=== PATIENT | female | born 1990 | race Caucasian/White ===

== ENCOUNTER 2021-04-22 17:40 | Outpatient (CLI) | payer OTHER, SELFPAY ==
[2021-04-22 18:43] VITALS: BMI 31.2
== END 2021-04-22 18:30 | disposition home or self-care (01) ==
PROVIDERS: PCP Family Medicine; Visit Provider Obstetrics & Gynecology
DX: O42.90 Premature rupture of membranes, unspecified as to length of time between rupture and onset of labor, unspecified weeks of gestation (principal); Z3A.00 Weeks of gestation of pregnancy not specified
CPT/HCPCS: 84112

== ENCOUNTER 2021-04-29 04:49 | Inpatient (IN) | payer OTHER, SELFPAY ==
[2021-04-29] VITALS (210 sets, daily range): BP systolic 63–153; BP diastolic 43–105; PULSE 57–157; RESP 16–18; TEMP 36.1–38.3; O2SAT 98–100; BMI 31.2
[2021-04-29] MEDS: LACTATED RINGERS 1,000 ML 125 ML IV CONT ×3 (05:38→20:55)
--- NOTE | 2021-04-29 05:41 | LDADM ---
This patient, Ryann Coleman, was admitted to Labor/Delivery/Recovery 108 on 04/29/21 at 04:49. Plans for labor, pain management and were discussed with patient. Patient/family oriented to hospital policies and general routines including ID bracelet, bed and alarms, visiting hours, pain management, procedures, bathroom and other care routines, personal items, smoking policy, room service/diet and guest tray routines, security routines, and visiting hours. Patient/Family are encouraged to report perceived risks to care and to ask questions if they do not understand what they are told or what they should do. See OBIX for further documentation.
[2021-04-29 05:46] LABS: Basophils Percent Auto 0.2 % (0.2-1.2); Eosinophils Absolute Auto 0.1 K/mm3 (0-0.3); Eosinophils Percent Auto 0.4 % (0-4.4); Hematocrit 35.9 % (37.0-47.0); Hemoglobin 12.3 g/dL (12.0-15.0); Immature Granulocyte Absolute 0.06 K/mm3 (0.00-0.031); Immature Granulocyte Percent A 0.5 % (0-0.5); Lymphocytes Absolute Auto 2.19 K/mm3 (0.9-3.2); Lymphocytes Percent Auto 17.3 % (18.3-44.2); Mean Corpuscular HGB Conc 34.3 g/dl (32-36); Mean Corpuscular Hemoglobin 30.8 pg (26-34); Mean Corpuscular Volume 89.8 fl (80-100); Mean Platelet Volume 9.6 fl (7.4-10.4); Monocytes Absolute Auto 0.8 K/mm3 (0.1-0.6); Monocytes Percent Auto 6.1 % (2.6-8.5); Neutrophils Absolute Auto 9.5 K/mm3 (1.3-6.7); Neutrophils Percent Auto 75.5 % (45.5-73.1); Platelet Count Result 238 k/mm3 (150-375); Red Cell Distribution Width 14.4 % (11.5-14.5); White Blood Count 12.6 K/mm3 (4.5-10.0)
[2021-04-29] MEDS: fentaNYL CITRATE INJ (*CRX) 100 MCG/2 ML VIAL 50 MCG IV PUSH ×3 (07:12→10:54)
--- NOTE | 2021-04-29 07:26 | WPDANESEPP ---
Anes - Eval Pre Procedure Procedure: labor epidural Date/Time: 04/29/21 07:26 Preop Diagnosis: labor pain Pre Op Diagnosis: Leaking Patient Data Age: 31 Gender: F Height: 1.55 m Weight: 75 kg Last Vital Signs Temp 36.2 C L 04/29/21 05:41 Pulse 92 04/29/21 07:01 Resp 18 04/29/21 05:41 BP 73/43 L 04/29/21 07:01 Allergies Allergy/AdvReac Type Severity Reaction Status Date / Time No Known Allergies Allergy Verified 04/27/21 11:47 Home Medications Medication Instructions Recorded Confirmed Type prenat.vits,fuad,qys-ybul-vlxrw 1 tablet PO DAILY 09/05/20 04/14/21 History cholecalciferol (vitamin D3) 25 25 mcg PO DAILY 11/02/20 04/14/21 History mcg (1,000 unit) capsule docusate sodium [Colace] 50 mg PO DAILY 03/30/21 04/14/21 History ferrous sulfate [Iron (ferrous 325 mg PO DAILY 03/30/21 04/14/21 History sulfate)] Laboratory Tests 04/29/21 04/29/21 05:32 05:32 WBC 12.6 K/mm3 H K/mm3 (4.5-10.0) RBC 4.00 M/mm3 L M/mm3 (4.2-5.4) Hgb 12.3 g/dL g/dL (12.0-15.0) Hct 35.9 % L % (37.0-47.0) MCV 89.8 fl fl (80-100) MCH 30.8 pg pg (26-34) MCHC 34.3 g/dl g/dl (32-36) RDW 14.4 % % (11.5-14.5) Plt Count 238 k/mm3 k/mm3 (150-375) MPV 9.6 fl fl (7.4-10.4) Immature Gran % (Auto) 0.5 % % (0-0.5) Neut % (Auto) 75.5 % H % (45.5-73.1) Lymph % (Auto) 17.3 % L % (18.3-44.2) [place] % (Auto) 6.1 % % (2.6-8.5) Eos % (Auto) 0.4 % % (0-4.4) Baso % (Auto) 0.2 % % (0.2-1.2) Lymph # (Auto) 2.19 K/mm3 K/mm3 (0.9-3.2) [place] # (Auto) 0.8 K/mm3 H K/mm3 (0.1-0.6) Eos # (Auto) 0.1 K/mm3 K/mm3 (0-0.3) Baso # (Auto) 0.0 K/mm3 K/mm3 (0.0-0.1) Abs Immat Gran (auto) 0.06 K/mm3 H K/mm3 (0.00-0.031) Absolute Neuts (auto) 9.5 K/mm3 H K/mm3 (1.3-6.7) Absolute Nucleated RBC 0.0 K/mm3 K/mm3 (0.0-0.012) Nucleated RBC % 0.0 % % (0.0-0.2) RPR Pending Patient hx anesthesia problems: none Family hx anesthesia problems: none Results Review: All pre-operative results and documents have been reviewed as part of the pre-operative evaluation. [facility] Past Medical History Medical History Anxiety Depression IBS (irritable bowel syndrome) Surgical History Surgical History [place] teeth extracted Family History Family History Other No pertinent family history Social History Social History Smoking status: Never smoker Alcohol intake: unknown Substance use: never Spiritual care concerns: No Exam Day of Procedure 04/29/21 07:26
[2021-04-29] MEDS: ONDANSETRON INJ 4 MG/2 ML VIAL IV PUSH (14:14)
[2021-04-29] MEDS: OXYTOCIN 30 UNITS/NS 500 ML 30 UNITS/500 ML BAG IV CONT (14:50)
--- NOTE | 2021-04-29 15:50 | PM.IMHP ---
H&P: HPI History of Present Illness Date/Time: 04/29/21 15:50 Patient is a 31yo LMP 07/22/20 currently 40w1d gestation with KELSEY 04/28/21. Patient is dated by LMP consistent with US on 09/14/20 at 7w gestation. Patient presented to L&D earlier this morning with complaints of leakage of fluid. Patient reports leakage of fluid at approx. 2:50 a.m. She also reports onset of contractions. Denies any vaginal bleeding and reports good movement. Upon arrival to L&D, patient was noted to be grossly ruptured and mile regularly. Decision made to admit patient in labor with SROM. Chief Complaint: Labor Spontaneous rupture of membranes Review of Systems Review of Systems: All systems reviewed & are unremarkable except as noted in HPI and below Constitutional: Constitutional: Reports as per HPI, Reports no additional constitutional complaints, Denies chills, Denies fever(s), Denies headache(s) and Denies night sweats Eyes: Eyes: Reports as per HPI and Reports no additional eye complaints ENT: Reports system reviewed and no additional complaints, except as documented, Reports as per HPI, Reports Normal hearing present and Denies headache(s) Cardiovascular: Cardiovascular: Reports as per HPI, Reports no additional cardiovascular complaints, Denies chest pain and Denies dyspnea Respiratory: Respiratory: Reports as per HPI, Reports no additional respiratory complaints, Denies cough and Denies dyspnea Gastrointestinal: Gastrointestinal: Reports as per HPI, Reports no additional gastrointestinal complaints, Denies abdominal pain, Denies change in bowel habits, Denies change in stool character, Denies nausea and Denies vomiting Genitourinary: Genitourinary: Reports no additional female genitourinary complaints, Reports as per HPI, Denies abnormal vaginal bleeding, Denies genital lesions, Denies hot flashes, Denies dyspareunia, Denies pelvic pain, Denies sexual dysfunction, Denies urinary incontinence, Denies vaginal discharge, Denies vaginal dryness and Denies vaginal odor Musculoskeletal: Musculoskeletal: Reports no additional musculoskeletal complaints and Reports as per HPI Integumentary/Breasts: Skin/Breast: Reports system reviewed and no additional complaints, except as docu, Reports as per HPI, Denies breast pain and Denies nipple discharge Neurologic: Reports system reviewed and no additional complaints, except as documented, Reports as per HPI, Reports Normal hearing present and Denies headache(s) Psychiatric: Psychiatric: Reports no additional psychiatric complaints, Reports as per HPI, Denies anxiety and Denies depression Endocrine: Endocrine: Reports no additional endocrine complaints and Reports as per HPI Hematologic/Lymphatic: Hematologic/Lymphatic: Reports no additional hematologic/lymphatic complaints and Reports as per HPI Allergic/Immunologic: Allergic/Immunologic: Reports no additional allergic/immunologic complaints and Reports as per HPI PMFSH Past Medical History Medical History Anxiety Depression IBS (irritable bowel syndrome) Surgical History Surgical History [place] teeth extracted Family History Family History Other No pertinent family history Social History Social History Smoking status: Never smoker Alcohol intake: unknown Substance use: never Spiritual care concerns: No Meds Home Medications and Allergies Home Medications Medication Instructions Recorded Confirmed Type prenat.vits,fuad,tjd-vqzb-vssur 1 tablet PO DAILY 09/05/20 04/14/21 History cholecalciferol (vitamin D3) 25 25 mcg PO DAILY 11/02/20 04/14/21 History mcg (1,000 unit) capsule docusate sodium [Colace] 50 mg PO DAILY 03/30/21 04/14/21 History ferrous sulfate [Iron (ferrous 325 mg PO DAILY 03/30/21 04/14/21 Histor
--- NOTE | 2021-04-29 16:07 | WPDHPUPDATE1 ---
History and Physical Update Update Date/Time: 04/29/21 16:07 History and Physical has been reviewed, including an updated exam of the patient. There are NO changes in the patient's condition. Risks, benefits, and alternatives have been discussed and questions answered. Patient agrees to proceed with procedure.
[2021-04-29] MEDS: diphenhydrAMINE HCl INJ 50 MG/ML VIAL 25 MG IV PUSH (19:29)
[2021-04-29] MEDS: AMPICILLIN 2 GM/NS 100 ML 2 GM/100 ML BAG IVPB (20:49)
--- NOTE | 2021-04-29 21:46 | PM.OBPNLAB ---
Pain Control Date/time seen: 04/29/21 21:46 Patient seen at bedside. Currently on pitocin with IUPC in place. SVE unchanged 5-6cm, anterior cervix significantly edematous and posterior approx. 70% effaced, -1 station. tachycardia noted to 160s with periods of minimal variability. Maternal temp WNL, however, subjectively feels warm. Has been started on antibiotics for GBS prophylaxis for prolonged rupture of membranes. Also given 1 dose of IV Benadryl in effort to see if cervix would reduce. Patient mile q 2 mins, however, MVUs just below 200. Plan was initially to continue current management with labor augmentation and attempt to improve Cat 2 tracing, however, occ late decelerations were noted on EFM. Due to Cat 2 tracing remote from delivery with suspicion for chorioamnionitis, recommendation made to proceed with section. Risks, benefits, and alternatives discussed with patient and partner. Patient implied an understanding and agrees with plan. Anesthesia notified.
--- NOTE | 2021-04-29 22:11 | PM.OBPRVD ---
OB - Delivery Note Procedure Delivery date: 04/29/21 Procedure: Procedures Operation Date: 04/29/21 22:15 <No data on this case meets the specified criteria> Intrapartal events: Intolerance Delivery augmentation: pitocin Delivery monitor: external FHT, external uterine and internal uterine Route of delivery: Specimen: Yes (placenta and cord, cord blood, and cord gases) Quantitative Blood Loss (ml): 770 Anesthesia type: Epidural Disposition: PACU Complications: No immediate complications Baby Date of : 04/29/21 Time of : 22:46 Weeks of gestation at delivery: 40 (40.1) gender: Female Weight (pounds): 8 Weight (ounces): 5 presentation: vertex Placenta delivery description: Manual Removal cord vessel description: 3 Vessels, Clamped/Cut and Around Body x1 (around lower extremity) score one minute: 7 score five minutes: 9
--- NOTE | 2021-04-29 22:13 | PM.OBPRVD ---
OB - Delivery Note Procedure Procedure: Procedures Operation Date: 04/29/21 22:15 <No data on this case meets the specified criteria> Intrapartal events: Intolerance Anesthesia type: Epidural Baby Date of : 04/29/21 Weeks of gestation at delivery: 40 (40.1) gender: Female presentation: vertex
--- NOTE | 2021-04-29 22:14 | W.PM.PROC2 ---
Procedure Note - Detailed Date of Procedure 04/29/21 Pre-op Diagnosis Intrauterine at 40w1d Category II tracing remote from delivery Left labial skin tag Post-op Diagnosis same Procedure Performed Primary low transverse section via Pfannenstiel Excision of left labial skin tag Surgeon Krystal iMller MD Skein Inspector Demetrice Rodriguez Anesthesia epidural Indications Same as above Findings Live female infant in cephalic presentation, clear amniotic fluid, apgars 7/9, weighing 8 lbs. 5 oz., normal appearing uterus, ovaries, and fallopian tubes bilaterally Description of Procedure The patient was taken to the operating room, where she self-transferred to the operating room table. Epidural anesthesia was administered and found to be adequate. The patient was placed in dorsal supine position with a leftward tilt. She was prepped and draped in the usual sterile fashion. Epidural anesthesia was tested and found to be adequate. A Pfannenstiel skin incision was made with a scalpel and carried through to underlying layer of fascia with the Bovie. The fascia was incised in the midline and the incision was extended laterally with the use of forceps and Godfrey scissors. The inferior aspect of the fascial incision was grasped with Yoselyn clamps, elevated, and the underlying rectus muscle were dissected off with Godfrey scissors. Attention was then turned to the superior aspect of the fascial incision, which in a similar manner, was grasped with Yoselyn clamps, elevated, and the underlying rectus muscles were also dissected off with Godfrey scissors. The rectus muscles were in the midline and the peritoneal cavity was entered bluntly. A small superficial area of bleeding was noted along the anterior surface of left rectus muscle. This area was made hemostatic with a single figure of eight suture using 0 vicryl. The peritoneal incision was extended superiorly and inferiorly with good visualization of the bladder and care was taken to avoid blood vessels. A bladder blade was inserted. The vesicouterine peritoneum was identified and incised sharply with Metzenbaum scissors. This incision was extended laterally with Metzenbaum scissors and a bladder flap was created digitally. The bladder blade was replaced. A low-transverse uterine incision was made with a scalpel. This incision was extended laterally with bandage scissors. Clear amniotic fluid was noted. The infant's head was grasped and gently guided to the level of the uterine incision. The infant's head was delivered easily and atraumatically without difficulty followed by the neck, shoulders, and rest of body with gentle fundal pressure. The infant's nose and mouth were suctioned with bulb suction. Terminal meconium was noted. A segment of umbilical cord was wrapped around a lower extremity and reduced. The cord was clamped and cut and the was handed off to waiting nursing staff. A segment of cord was collected for cord gases. Cord blood was also collected. The placenta was then delivered manually with gentle uterine massage. Uterus was exteriorized and cleared of all clots and debris. The uterine incision was reapproximated with 0 Vicryl in a running, locked fashion. A second imbricating layer using 0 Monocryl performed. Excellent hemostasis was noted. On inspection, the uterus, ovaries, and fallopian tubes appeared to be normal bilaterally. The uterus was replaced into the abdominal cavity. The gutters were cleared of all clots and debris. The uterine incision was inspected again and noted to be hemostatic. Hemaderm was applied across the uterine incision. Interceed was also applied across the uterine incision and anterior surface of the uterus. A pinpoint area of bleeding was noted along the posterior surface of the bladder. This area was made hemostatic with light touch of bovie. The peritoneum was reapproximated with 2-0 Monocryl. The fascia was then closed with 0 Vicryl in a running fashion. The subcutaneous
[2021-04-29] MEDS: ceFAZolin 2 GM/D5W 50 ML 2 GM/50 ML BAG IVPB (22:36)
[2021-04-30] VITALS (45 sets, daily range): BP systolic 100–134; BP diastolic 45–108; PULSE 73–175; RESP 16–20; TEMP 36.4–37.2; O2SAT 95–98
[2021-04-30] MEDS: OXYTOCIN 30 UNITS/NS 500 ML 30 UNITS/500 ML BAG 125 UNITS IV CONT (00:18)
[2021-04-30] MEDS: CLINDAMYCIN 900 MG/D5W 50 ML 900 MG/50 ML PIGGYBACK 50 MG IVPB ×3 (01:24→17:53)
--- NOTE | 2021-04-30 01:49 | OBPPTRN ---
Patient transferred to post room #288 via stretcher. Support person present. Oriented to unit, room, information board, rooming in, admission packet and security measures. Patient verbalizes understanding.
[2021-04-30] MEDS: AMPICILLIN 2 GM/NS 100 ML 2 GM/100 ML BAG IVPB ×4 (03:09→22:01)
[2021-04-30] MEDS: KETOROLAC 30 MG/ML VIAL (*BKC) IV PUSH (05:37)
[2021-04-30 05:59] LABS: Basophils Absolute Auto 0.1 K/mm3 (0.0-0.1); Basophils Percent Auto 0.3 % (0.2-1.2); Eosinophils Percent Auto 0.1 % (0-4.4); Hematocrit 33.1 % (37.0-47.0); Hemoglobin 11.4 g/dL (12.0-15.0); Immature Granulocyte Absolute 0.08 K/mm3 (0.00-0.031); Immature Granulocyte Percent A 0.5 % (0-0.5); Lymphocytes Absolute Auto 1.72 K/mm3 (0.9-3.2); Lymphocytes Percent Auto 9.8 % (18.3-44.2); Mean Corpuscular HGB Conc 34.4 g/dl (32-36); Mean Corpuscular Hemoglobin 31.1 pg (26-34); Mean Corpuscular Volume 90.4 fl (80-100); Mean Platelet Volume 9.4 fl (7.4-10.4); Monocytes Absolute Auto 1.2 K/mm3 (0.1-0.6); Monocytes Percent Auto 6.8 % (2.6-8.5); Neutrophils Absolute Auto 14.5 K/mm3 (1.3-6.7); Neutrophils Percent Auto 82.5 % (45.5-73.1); Platelet Count Result 201 k/mm3 (150-375); Red Blood Count 3.66 M/mm3 (4.2-5.4); Red Cell Distribution Width 14.3 % (11.5-14.5); White Blood Count 17.6 K/mm3 (4.5-10.0)
[2021-04-30] MEDS: NEOMYCIN/POLYMYXIN/BACITRACIN OINTMENT 15 GM TUBE 1 APPLIC TOPICAL (07:05)
[2021-04-30] MEDS: SIMETHICONE 80 MG TAB.CHEW PO ×3 (07:05→22:04)
[2021-04-30] MEDS: DOCUSATE SODIUM 100 MG CAPSULE PO ×2 (07:06→16:09)
[2021-04-30] MEDS: MULTIVIT/MIN/PREN/FOL AC/IRON TABLET 1 TAB PO (07:06)
[2021-04-30] MEDS: LANOLIN (LANSINOH) 7.5 GM CREAM 1 APPLIC TOPICAL (07:06)
--- NOTE | 2021-04-30 08:00 | PC.NURSE ---
Nipple shield provided to mother due to ineffective feeding. Instructions given on application and cleaning of shield. Discussed nipple shield precautions and possible complications. Patient able to return demonstration on proper application of shield. Discussed the need to initiate pumping if infant continues to nurse with the shield. Patient verbalizes understanding.
[2021-04-30] MEDS: DEXTROSE 5%/0.45% SOD CHL 1,000 ML 125 ML IV CONT (08:30)
--- NOTE | 2021-04-30 10:27 | P.PNOB_ITS ---
OB - PN: Subj Subjective Date/time seen: 04/30/21 10:27 Patient doing well this AM. Pain well controlled with medication. Reported mild headache earlier, resolved. Denies any chest pain, SOB, N/V. Tolerating PO diet. Catheter still in place. Minimal flatus. No ambulation yet. OB - PN: Obj Data Labs CBC & Chem 7: 04/30/21 05:31 Labs: Laboratory Results - last 24 hr 04/30/21 05:31 WBC 17.6 H RBC 3.66 L Hgb 11.4 L Hct 33.1 L MCV 90.4 MCH 31.1 MCHC 34.4 RDW 14.3 Plt Count 201 MPV 9.4 Immature Gran % (Auto) 0.5 Neut % (Auto) 82.5 H Lymph % (Auto) 9.8 L [place] % (Auto) 6.8 Eos % (Auto) 0.1 Baso % (Auto) 0.3 Lymph # (Auto) 1.72 [place] # (Auto) 1.2 H Eos # (Auto) 0.0 Baso # (Auto) 0.1 Abs Immat Gran (auto) 0.08 H Absolute Neuts (auto) 14.5 H Absolute Nucleated RBC 0.0 Nucleated RBC % 0.0 OB - PN A/P Assessment and Plan (1) Delivery by section using transverse incision of lower segment of uterus: Code(s): O82 - Encounter for delivery without indication Status: Acute Assessment and Plan: POD#1 doing well continue routine postoperative care encourage ambulation or use of IS dc ni this AM/afternoon (2) Chorioamnionitis: Code(s): O41.1290 - Chorioamnionitis, unspecified trimester, not applicable or unspecified Status: Acute Assessment and Plan: currently afebrile continue antibiotics Time Spent With Patient Time: Total time spent is greater than 50% in coordination of care (as documented) at patient's floor/unit and/or counseling patient: Exam Const: General: cooperative, healthy appearing, comfortable and no acute distress GI: Inspection: non-distended GI Palp: Yes Soft to palpation and No Tenderness to palpation present (GI) Other: inc covered with bandage that is c/d/i Extrem: Right lower extremity: edema Details: 1+ Left lower extremity: edema Details: 1+
[2021-04-30] MEDS: HYDROcodone/acetaminophen (*CRX) 5-325 MG TABLET 1 TAB PO ×3 (13:07→22:03)
[2021-04-30] MEDS: IBUPROFEN 600 MG TABLET PO ×2 (13:08→22:02)
[2021-05-01] MEDS: SIMETHICONE 80 MG TAB.CHEW PO (04:36)
[2021-05-01] MEDS: IBUPROFEN 600 MG TABLET PO ×3 (04:36→21:54)
[2021-05-01] MEDS: HYDROcodone/acetaminophen (*CRX) 10-325 MG TABLET 1 TAB PO (04:37)
[2021-05-01 07:45] VITALS: BP 109/64; PULSE 78; RESP 16; TEMP 36.3; O2SAT 97
[2021-05-01] MEDS: MULTIVIT/MIN/PREN/FOL AC/IRON TABLET 1 TAB PO (07:52)
[2021-05-01] MEDS: HYDROcodone/acetaminophen (*CRX) 5-325 MG TABLET 1 TAB PO ×3 (07:52→21:55)
[2021-05-01] MEDS: DOCUSATE SODIUM 100 MG CAPSULE PO (07:52)
[2021-05-01] MEDS: NEOMYCIN/POLYMYXIN/BACITRACIN OINTMENT 15 GM TUBE 1 APPLIC TOPICAL (09:00)
[2021-05-01] MEDS: ONDANSETRON INJ 4 MG/2 ML VIAL IV PUSH (09:55)
[2021-05-01 10:40] LABS: Rapid Plasma Reagin Non-Reactive (NonReactive)
--- NOTE | 2021-05-01 11:54 | PC.NURSE ---
Consulted with patient, reviewed feeding cues, frequencies, duration of feedings, feeding elimination flow sheet, and signs of adequate intake. Demonstrated stimulation techniques to wake for feeding. Encouraged parents to stimulate to stay awake at breast through out feeding. Showed mom hand expression before feeding and breast compression while infant was feeding. Assisted with to breast. Reviewed positioning/alignment, holding breast and asymmetrical latch on. Infant was able to latch correctly after a few attempts. tongue sucks and has to work to get tongue down for feeding. Infant nursed eagerly once on breast, with steady draws and occasional swallowing noted. Reviewed signs of a correct latch, effective nursing and suck swallow ratio. was able to maintain latch with minimal discomfort to mother. Mom has an abrasion noted on right breast across nipple surface and one on the areola. Mom states areola one is from pumping prior to delivery to induce labor and the other from previous feeding. Discussed flange sizes and the spectra pump. Mom does not have pump with her but states she now feels able to assess flange size after she gets home. educated on obtaining a deep latch for every feeding. Nipple care reviewed. Instructed mother to call out for assistance with next feeding. Instructed feeding should be initiated three hours from start of last feeding or if feeding cues are noted before. Mother voiced understanding of information shared.
--- NOTE | 2021-05-01 12:58 | P.PNOB_ITS ---
OB - PN: Subj Subjective Date/time seen: 05/01/21 12:58 She states she is . Has ambulated without problems. Lochia decreasing. Positive flatus. Tolerating regular food. No leg pain. OB - PN: Obj Data Labs CBC & Chem 7: 04/30/21 05:31 Labs: Laboratory Results - last 24 hr 04/29/21 05:32 RPR Non-reactive OB - PN A/P Assessment and Plan (1) Delivery by section using transverse incision of lower segment of uterus: Code(s): O82 - Encounter for delivery without indication Status: Acute Assessment and Plan: Doing well. Routine post op care. (2) Chorioamnionitis: Code(s): O41.1290 - Chorioamnionitis, unspecified trimester, not applicable or unspeci fied Status: Acute Assessment and Plan: Remained afebrile after antibiotics discontinued. Time Spent With Patient Time: Total time spent is greater than 50% in coordination of care (as documented) at patient's floor/unit and/or counseling patient: Exam Const: General: comfortable and no acute distress Resp: Effort & Inspection: normal respiratory effort GI: Other: fundus -2umb firm appropriate tenderness, incision intact, no drainage. Extrem: Other: 1-2+ edema bilat nontender bilat Psych: Mental Status: mental status grossly normal Affect: normal affect
--- NOTE | 2021-05-01 14:55 | WPDANLDPN2 ---
Anes-Prog Note L&D Date/Time: 05/01/21 14:55 Comfortable throughout: section Neuraxial method: epidural Epidural/Spinal procedure site: clean & non-tender Neuro status: Neuro function grossly intact. Cardiovascular status: normal Respiratory status: normal Airway patency: baseline Mental status: baseline Post-Op hydration status: normal Vital Signs: Last Vital Signs Temp 36.3 C L 05/01/21 07:45 Pulse 78 05/01/21 07:45 Resp 16 05/01/21 07:45 BP 109/64 05/01/21 07:45 Pulse Ox 97 05/01/21 07:45 Pain score (VAS): 08/07 I/O: Intake & Output 04/30/21 05/01/21 05/01/21 23:59 07:59 15:59 Intake Total 100 Balance 100 Post-procedural complaints: none Patient feedback: Patient satisfied with anesthetic care.
--- NOTE | 2021-05-01 14:56 | WPDANLDNPN2 ---
Anes-Prog Note L&D-Neuraxial Date/Time: 05/01/21 14:56 Neuraxial medications: epidural PF morphine Opiod-related complaints: none Patient feedback: Patient satisfied with post-operative pain management.
[2021-05-01 19:18] VITALS: BP 116/83; PULSE 71; RESP 16; TEMP 37.2; O2SAT 99
[2021-05-02] MEDS: IBUPROFEN 600 MG TABLET PO ×4 (04:09→22:10)
[2021-05-02 07:00] VITALS: BP 117/67; PULSE 63; RESP 18; TEMP 36.4; O2SAT 98
[2021-05-02] MEDS: NEOMYCIN/POLYMYXIN/BACITRACIN OINTMENT 15 GM TUBE 1 APPLIC TOPICAL (09:00)
[2021-05-02] MEDS: MULTIVIT/MIN/PREN/FOL AC/IRON TABLET 1 TAB PO (09:36)
[2021-05-02] MEDS: HYDROcodone/acetaminophen (*CRX) 5-325 MG TABLET 1 TAB PO ×3 (09:37→22:10)
[2021-05-02] MEDS: DOCUSATE SODIUM 100 MG CAPSULE PO ×2 (09:39→15:57)
[2021-05-02 20:00] VITALS: BP 142/81; PULSE 64; RESP 16; TEMP 36.8; O2SAT 98
--- NOTE | 2021-05-02 21:42 | PM.OBPNVD ---
OB - PN: Subj Subjective Date/time seen: 05/02/21 0815 She has been ambulating. Pain is controlled when she takes the pain medication on schedule. Positive flatus. Tolerated reg diet. No leg pain. Lochia decreasing. . Baby started on antibiotics. She has bilat leg swelling. No calf tenderness. OB - PN: Obj Data Labs CBC & Chem 7: 04/30/21 05:31 OB - PN A/P Assessment and Plan (1) Delivery by section using transverse incision of lower segment of uterus: Code(s): O82 - Encounter for delivery without indication Status: Acute Assessment and Plan: POD 3. She is doing ok. Continue oral pain medication. Anticipate discharge tomorrow. Will order compression knee high may help with swelling. Time Spent With Patient Time: Total time spent is greater than 50% in coordination of care (as documented) at patient's floor/unit and/or counseling patient: Exam Const: General: comfortable and no acute distress Resp: Effort & Inspection: normal respiratory effort : Other: incision intact clean dry no drainage Extrem: Other: nontender bilaterally 2+ edema bilat, no redness Psych: Mental Status: mental status grossly normal Affect: normal affect
[2021-05-03] MEDS: IBUPROFEN 600 MG TABLET PO ×2 (04:49→11:05)
[2021-05-03] MEDS: HYDROcodone/acetaminophen (*CRX) 5-325 MG TABLET 1 TAB PO ×2 (04:50→11:05)
[2021-05-03 08:00] VITALS: BP 126/86; PULSE 91; TEMP 36.8; O2SAT 98
--- NOTE | 2021-05-03 08:43 | PM.OBDSVD ---
DS: Admitting Diagnosis Discharge Date May 03, 2021. Admitting Diagnosis Spontaneous rupture of membranes. DS: Discharge Diagnosis Discharge Diagnosis (1) Delivery by section using transverse incision of lower segment of uterus: Code(s): O82 - Encounter for delivery without indication Status: Acute (2) Chorioamnionitis: Code(s): O41.1290 - Chorioamnionitis, unspecified trimester, not applicable or unspecified Status: Acute OB - DS: Summary Hospital Course Hospital Course: Patient was admitted for SROM and labor. She had protracted labor and had pitocin augmentation. During labor she did get antibiotics for GBS prophylaxis for membraines ruptured more than 18 hours. She also developed a fever and tachycardia and was diagnosed with chorioamnionitis. The tracing was Cat 2 remote from delivery and she was recommended for primary ceserean section. She underwent an uncomplicated ceserean section. She also had a labial skin growth that she wished to be removed at time of delivery whichwas excised. Post operatively she was continued on IV antibiotics until afebrile for 24 hours. She did well. On post op day two she was ambulating and had better analgesia. On post op day 3 she was improved. Remained afebrile off of antibiotics. She was discharge to home on POD4 when baby was ready for discharge. Discharge precautions discussed. Her incision was healing well. OB Procedures : Ultrasound OB Procedures Intrapartum: and Other (Antibiotics for GBS prophylaxis ruptured more than eighteen hours) OB Procedures: : Antibiotics Peripartum Data Delivery Method: Section (Excision of labial tag) Procedures: Procedures Operation Date: 04/29/21 22:15 Actual Procedure Side Surgeon p Section Krystal Miller MD complications: none Status at Discharge Functional status at discharge: independent ambulation Time Spent with Patient Time attestation: Total time spent providing and/or coordinating discharge services: Exam Const: General: cooperative Orientation/consciousness: oriented to person, oriented to place and oriented to time HENMT: General nose exam: Normal external nose present Eyes: General: appearance normal, both eyes and all related structures Resp: Effort & Inspection: normal respiratory effort GI: Inspection: normal to inspection Skin: General skin exam: normal color Neuro: General: oriented to person, oriented to place and oriented to time Extrem: General: normal to inspection and no calf tenderness Psych: Appearance: grossly normal Mental Status: mental status grossly normal DS: Data Data Completed and Pending Pending studies at discharge: Pending at discharge 04/30/21 00:31 Surgical [PTH] Routine Discharge Plan Discharge Attending physician on discharge: Krystal Miller Discharging Clinician: Naveed Reyes Anticipated Discharge Date/Time: 05/03/21 08:39 Patient Disposition: Home, Self-Care Activity: may shower, may drive after 2 weeks and pelvic rest Diet: regular Discharge Instructions: Pelvic rest for 4-6 weeks. May take over the counter Ibuprofen or Tylenol for pain. Call if saturating more than a pad an hour, leg redness, pain and swelling, temperature>100.4. No strenuous activity. Education: Mom and Baby Guide Given to: Mother Follow-Up: Call your delivering provider's office for an appointment to be seen in: 2 Weeks Mom and baby should come to the [facility] for the follow-up appointment. Appointment Date/Time: May 04, 2021 at 1:30 pm What to expect at your follow-up visit: Blood Pressure Check Physical Assessment Call [phone] if you are unable to keep your appointment time. BREAST CARE: * Wear a snug supportive bra. * For engorgement discomfort: Breast Feeding: * Apply warm moist washcloths * E
[2021-05-03] MEDS: MULTIVIT/MIN/PREN/FOL AC/IRON TABLET 1 TAB PO (11:04)
[2021-05-03] MEDS: DOCUSATE SODIUM 100 MG CAPSULE PO (11:04)
[2021-05-03] MEDS: NEOMYCIN/POLYMYXIN/BACITRACIN OINTMENT 15 GM TUBE 1 APPLIC TOPICAL (11:08)
--- NOTE | 2021-05-03 12:09 | PC.NURSE ---
Addendum entered by Urvashi Meyer RN 05/03/21 15:09: This noted was entered and performed by Myrna Meyer RN, CLC not Lamar Polanco RN. Computer login error. Original Note: Consulted with patient, reviewed feeding cues, frequencies, duration of feedings, feeding elimination flow sheet, and signs of adequate intake. Demonstrated stimulation techniques to wake infant for feeding. Mother independenlt placed infant to breast using cross cradle on right breast. Reviewed positioning/alignment, holding breast and asymmetrical latch on. was able to latch correctly. Infant nursed eagerly, with steady draws and frequent swallowing noted. Reviewed signs of a correct latch, effective nursing and suck swallow ratio. was able to maintain latch without discomfort to mother. Nipple care reviewed. Mother noted to have a red compression stip and bruising to right nipple. Mother states she tried to induce her labor by pumping prior to delivery and the flange was not on correctly which caused the issue. Mother is using lanolin prn and instructed about products available to aide in soreness if necessary. Instructed mother to call out for RN assistance if she is unable to latch for feeding or she has discomfort with nursing. Mother's milk is is and breasts are firm. Discussed engorgement and refered to mother/baby care guide for dc along with all outpt support services available. Mother voiced understanding of information shared and is confident to continue with at home.
[2021-05-04 14:01] VITALS: BP 129/74; PULSE 83; RESP 20; TEMP 37.2; O2SAT 100
== END 2021-05-03 12:52 | disposition home or self-care (01) | DRG 787 ==
LOC: ANHLDR 22:50 → ANHOB2 04-30 01:59
PROVIDERS: Admitting Provider Student in an Organized Health Care Education/Training Program; PCP Family Medicine; Visit Provider Obstetrics & Gynecology
PROC: 10D00Z1 Extraction of Products of Conception, Low, Open Approach (ICD-10-PCS; CPT 59514; principal; 2021-04-29 22:15)
DX: O69.2XX0 Labor and delivery complicated by other cord entanglement, with compression, not applicable or unspecified (principal); Z37.0 Single live birth; Z3A.40 40 weeks gestation of pregnancy; O99.72 Diseases of the skin and subcutaneous tissue complicating childbirth; O86.4 Pyrexia of unknown origin following delivery; O99.62 Diseases of the digestive system complicating childbirth; K58.9 Irritable bowel syndrome, unspecified; O99.344 Other mental disorders complicating childbirth; F32.A Depression, unspecified; F41.9 Anxiety disorder, unspecified; O36.8330 Maternal care for abnormalities of the fetal heart rate or rhythm, third trimester, not applicable or unspecified; N90.89 Other specified noninflammatory disorders of vulva and perineum; O77.0 Labor and delivery complicated by meconium in amniotic fluid; O42.92 Full-term premature rupture of membranes, unspecified as to length of time between rupture and onset of labor
CPT/HCPCS: 36415; 85025; 86592; 86850; 86900; 86901; 88304; 88305; 88307; A9270; J0290; J0690; J1200; J1580; J1885; J2250; J2274; J2405; J2590; J2795; J3010; J7120

== ENCOUNTER 2021-05-04 14:01 | Outpatient (CLI) | payer OTHER, SELFPAY ==
[2021-05-04] MEDS: MEASLES,MUMPS,RUBELLA VACCINE 0.5 ML VIAL SUB-Q (14:17)
== END 2021-05-04 14:02 | disposition home or self-care (01) ==
LOC: ANHOBOP 14:03
PROVIDERS: PCP Family Medicine; Visit Provider Obstetrics & Gynecology
DX: Z23 Encounter for immunization (principal)
CPT/HCPCS: 90710

== ENCOUNTER 2023-07-30 16:59 | Outpatient (CLI) | payer OTHER, SELFPAY ==
--- NOTE | ~2023-07-30 | US_ITS ---
EXAMINATION: US OB <=14 wk fetus w TV INDICATION: SUBCHRONIC HEMATOMA 1ST TRIMESTER TECHNIQUE: Sonography of the pelvis was performed by transabdominal and transvaginal techniques. COMPARISON: None. RESULT: Uterus: 7.5 x 3.8 x 6.0 cm. Retroverted and retroflexed. Heterogeneous endometrium measuring 1.5 cm. Anechoic somewhat tubular appearing area adjacent to the inferior left lateral uterus. Intrauterine gestational sac: Not seen. Right ovary: 2.6 x 2.6 x 1.9 cm. Vascular flow is present. No adnexal mass. Left ovary: 2.1 x 3.1 x 2.2 cm. Vascular flow is present. No adnexal mass. Pelvis free fluid: None. IMPRESSION: No visible intrauterine gestational sac, which may be normal in early . Spontaneous and ectopic are not excluded. Serial beta hCGs are recommended. . Tubular nonvascular structure at the left inferior uterus, likely a loop of nondilated small bowel. H ydrosalpinx could appear similarly. Reviewed, dictated and finalized at location K. E CARE OCCUPATIONAL THERAPIST IMPRESSION: No visible intrauterine gestational sac, which may be normal in early . Spontaneous and ectopic are not excluded. Serial beta hCGs are recommended. . Tubular nonvascular structure at the left inferior uterus, likely a loop of non dilated small bowel. Hydrosalpinx could appear similarly.
== END 2023-07-30 17:00 | disposition home or self-care (01) ==
PROVIDERS: PCP Family Medicine; Visit Provider Obstetrics & Gynecology Gynecology
DX: O26.851 Spotting complicating pregnancy, first trimester (principal); Z3A.00 Weeks of gestation of pregnancy not specified
CPT/HCPCS: 36415; 76801; 76817; 84702

== ENCOUNTER 2023-08-01 14:26 | Outpatient (RCR) | payer OTHER, SELFPAY | END 2023-10-28 23:59 | disposition home or self-care (01) | LOC: ANHLAB 14:26 | PROVIDERS: PCP Family Medicine; Visit Provider Obstetrics & Gynecology Gynecology | DX: O26.851 Spotting complicating pregnancy, first trimester (principal); Z3A.00 Weeks of gestation of pregnancy not specified | CPT/HCPCS: 36415; 84702 ==

== ENCOUNTER → 2023-08-02 11:44 | Outpatient (CLI) | payer OTHER, SELFPAY ==
--- NOTE | ~2023-08-02 | US_ITS ---
EXAMINATION: US OB transvaginal DATE: 08/02/2023 12:13 INDICATION: Threatened during first trimester of TECHNIQUE: Real-time pelvic ultrasound utilizing both a transvaginal and transabdominal probe was pe rformed. The interpreting radiologist was not present for the study. COMPARISON: 07/30/2023 FINDINGS: The retroverted uterus measures 7.4 x 5.3 x 6.0 cm. The endometrial complex measures 1.5 cm in thickn ess with no evident intrauterine gestational sac. The right ovary measures 2.4 x 1.8 x 2.4 cm. The left ovary measures 3.3 x 2.1 x 3.3 cm. Long segment of the left ovary is a 1.9 x 1.7 x 1.2 cm complex cystic lesion with thickened echogenic peripheral wall and small echogenic structure within the 8 mm diameter centrally cystic region of the lesion. Th ere is a small amount of hypoechoic fluid along side the left ovary which could represent a small paige unt of hemoperitoneum. The anechoic tubular structure previously seen in the left adnexal region susp icious for a hydrosalpinx is not clearly visualized in the current study study. There does however . PA some were no hypoechoic tubular structure within the region of hemoperitoneum which could represen t blood also within the hydrosalpinx. IMPRESSION: 1. No intrauterine gestational sac. Differential would remain early, failed or ectopic . The re is however a 1.9 cm thick-walled complex cystic left adnexal lesion with echogenic structure withi n the central cystic component which is suspicious for an ectopic . 2. Small amount of hypoechoic fluid along side the left adnexa suspicious for hemoperitoneum, potenti ally also within a left hydrosalpinx. 3. Dr. Dillard discussed these findings with Parris Huitron at 12:57 PM. Reviewed, dictated and finalized at location A. OR OPERATOR IMPRESSION: 1. No intrauterine gestational sac. Differential would remain early, failed or ectopic . There is however a 1.9 cm thick-walled complex cystic left a dnexal lesion with echogenic structure within the central cystic component whic h is suspicious for an ectopic . 2. Small amount of hypoechoic fluid along side the left adnexa suspicious for h emoperitoneum, potentially also within a left hydrosalpinx. 3. Dr. Dillard discussed these findings with Parris Huitron at 12:57 PM.
== END ==
PROVIDERS: PCP Advanced Practice Midwife; Visit Provider Advanced Practice Midwife
DX: O00.91 Unspecified ectopic pregnancy with intrauterine pregnancy (principal); O20.0 Threatened abortion
CPT/HCPCS: 76817

== ENCOUNTER 2023-08-02 14:09 | Outpatient (CLI) | payer OTHER, SELFPAY ==
[2023-08-02 14:29] LABS: Hemoglobin 12.4 g/dL (12.0-15.0); Mean Corpuscular HGB Conc 32.6 g/dl (32-36); Mean Corpuscular Hemoglobin 29.4 pg (26-34); Mean Platelet Volume 9.2 fl (7.4-10.4); Platelet Count Result 265 k/mm3 (150-375); Red Blood Count 4.22 M/mm3 (4.2-5.4); Red Cell Distribution Width 12.9 % (11.5-14.5); White Blood Count 12.7 K/mm3 (4.5-10.0)
[2023-08-02 14:39] LABS: Alanine Aminotransferase 19 U/L (6-35); Albumin Level 4.7 g/dL (3.5-5.1); Alkaline Phosphatase 70 U/L (38-126); Anion Gap 10 mmol/L (8-16); Aspartate Amino Transferase 33 U/L (14-36); Bilirubin,Total 0.5 mg/dL (0.2-1.3); Blood Urea Nitrogen 11 mg/dL (7-17); Calcium 9.2 mg/dL (8.4-10.2); Carbon Dioxide 26 mmol/L (22-30); Chloride 102 mmol/L (98-107); Estimated Glomerular Filt Rate > 60; Glucose 133 mg/dL (65-110); Potassium 3.6 mmol/L (3.4-5.0); Sodium 138 mmol/L (137-145)
== END 2023-08-02 14:10 | disposition home or self-care (01) ==
LOC: ANHLAB 14:11
PROVIDERS: PCP Advanced Practice Midwife; Visit Provider Obstetrics & Gynecology Gynecology
DX: O00.80 Other ectopic pregnancy without intrauterine pregnancy (principal)
CPT/HCPCS: 36415; 80053; 84702; 85027; 86850; 86900; 86901

== ENCOUNTER 2023-08-05 10:50 | Outpatient (CLI) | payer OTHER, SELFPAY | END 2023-08-05 10:51 | disposition home or self-care (01) | LOC: ANHLAB 10:52 | PROVIDERS: Visit Provider Obstetrics & Gynecology Gynecology | DX: O00.80 Other ectopic pregnancy without intrauterine pregnancy (principal) | CPT/HCPCS: 36415; 84702 ==

== ENCOUNTER 2023-08-09 08:36 | Outpatient (CLI) | payer OTHER, SELFPAY | END 2023-08-09 08:37 | disposition home or self-care (01) | LOC: ANHLAB 08:37 | PROVIDERS: Visit Provider Obstetrics & Gynecology Gynecology | DX: O00.80 Other ectopic pregnancy without intrauterine pregnancy (principal); Z3A.00 Weeks of gestation of pregnancy not specified | CPT/HCPCS: 36415; 84702 ==

== ENCOUNTER 2023-08-16 10:26 | Outpatient (CLI) | payer OTHER, SELFPAY | END 2023-08-16 10:27 | disposition home or self-care (01) | PROVIDERS: Visit Provider Obstetrics & Gynecology Gynecology | DX: O00.80 Other ectopic pregnancy without intrauterine pregnancy (principal) | CPT/HCPCS: 36415; 84702 ==

== ENCOUNTER 2023-09-12 15:35 | Outpatient (RCR) | payer OTHER, SELFPAY ==
[2023-08-23 10:16] LABS: Beta HCG Quantitative 266.39 mIU/ML
[2023-08-30 13:27] LABS: Beta HCG Quantitative 91.68 mIU/ML
[2023-09-04 10:16] LABS: Beta HCG Quantitative 55.39 mIU/ML
[2023-09-12 16:45] LABS: Beta HCG Quantitative 4.65 mIU/ML
== END 2023-11-21 23:59 | disposition home or self-care (01) ==
LOC: ANHLAB 15:35
PROVIDERS: Visit Provider Obstetrics & Gynecology Gynecology
DX: O00.80 Other ectopic pregnancy without intrauterine pregnancy (principal)
CPT/HCPCS: 36415; 84702